=== PATIENT | male | born 1955 | race Caucasian/White ===

== ENCOUNTER 2022-09-17 13:28 | Emergency (ER) | payer MEDICARE ==
[~2022-09-17] VITALS: Ht 167.6 cm; Wt 103.0 kg
[2022-09-17 13:33] VITALS: BP_SYST 155
--- NOTE | 2022-09-17 13:35 | NUR ---
Patient to ER bed 3 to gown for evaluation. Side rails up. Report given to MARY ANNE ALBERT.
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
--- NOTE | 2022-09-17 14:49 | NUR ---
PT SITTING UP IN BED ON THE PHONE, FOOD TRAY ORDERED AT THIS TIME
--- NOTE | 2022-09-17 14:56 | NUR ---
PT REFUSING LABS AT THIS TIME
--- NOTE | 2022-09-17 15:29 | NUR ---
PT AMBULATED TO RESTROOM AND STILL REFUSE TO GIVE URINE
--- NOTE | 2022-09-17 16:44 | NUR ---
Patient given written and verbal discharge instructions and verbalizes understanding. ER MD discussed with patient the results and treatment provided. Patient in stable condition. ID arm band removed. IV catheter removed intact and dressing applied, no active bleeding. Rx of [] given. Patient educated on pain management and to follow up with PMD. Pain Scale []. Opportunity for questions provided and answered. Medication side effect fact sheet provided.
== END 2022-09-17 16:43 | disposition home or self-care (01) ==
LOC: SED 13:28
DX: E11.649 Type 2 diabetes mellitus with hypoglycemia without coma (principal); I10 Essential (primary) hypertension; Z79.899 Other long term (current) drug therapy
CPT/HCPCS: 71045; 82962; 99283